=== PATIENT | female | born 1990 | race Caucasian/White ===

== ENCOUNTER 2016-10-08 18:35 | Emergency (ER) | payer OTHER ==
--- NOTE | ~2016-10-08 | CT2 ---
[facility] A Service of [facility] & [facility] RADIOLOGY TEXT RESULTS PATIENT: NINA HERNANDEZ LOCATION: SED : 88 UNIT #: [id number] AGE: [address]: Jarret Rothman SEX: F ORDER DR: [id number] [address] [address] [id number] MR#: [id number] Acc #: [id number] NAME: NINA HERNANDEZ : 1990 SEX: F STUDY DATE/TIME: 10/08/2016 20:01 UNIT: SED ROOM: STUDY DESCRIPTION: CT Abd and Pelv W Cont Attending Physician: Jarret Rothman P.A.-C. Referring Physician: Jarret Rothman P.A.-C. Ordering Physician: Jarret Rothman P.A.-C. Primary Care Physician: Tanya Dent D.O. MEDICAL IMAGING REPORT This report is preliminary unless electronic signature is present. EXAM CT abdomen and pelvis INDICATIONS Right flank pain and nausea for [address]. [address] of the abdomen and pelvis utilizing 100 mL Isovue-370 IV contrast. Coronal and sagittal reconstructions were obtained. This CT exam was performed with one or more of the following radiation dose reduction techniques: Automatic exposure control, adjustment of mA and/or kV according to patient size, and iterative reconstruction. COMPARISON CT abdomen and pelvis dated 02/20/2016. FINDINGS There is an abnormal wedge-shaped area of enhancement in the inferior-pole right kidney. There is some adjacent inflammation in the pararenal fat. This is most consistent with a focal pyelonephritis. There is some mild abnormal enhancement of the right ureter consistent with an ascending urinary tract infection. There is mild pelvicaliectasis. No distal obstructing stone or lesion. The remaining solid abdominal organs are within normal limits. Gallbladder is not distended. Pancreas, spleen, and adrenal glands are within normal limits. The bowel is not dilated. There is a small umbilical hernia. The appendix is normal. The abdominal aorta is normal in caliber. PELVIS: No pelvic mass. There has been prior tubal ligation coils placed in the fallopian tubes. There are a few small follicles in the ovaries. [facility]. [facility] A Service of [facility] & [facility] RADIOLOGY TEXT RESULTS PATIENT: NINA HERNANDEZ LOCATION: SED : 88 UNIT #: [id number] AGE: [address]: Jarret Rothman PAC SEX: F ORDER DR: No enlarged pelvic or inguinal lymph nodes. Bladder enhances normally. No acute osseous abnormalities. IMPRESSION 1. Abnormal focal area of enhancement within the inferior right kidney consistent with a pyelonephritis. Mild inflammatory stranding in the pararenal fat is supportive for an acute pyelonephritis. 2. Abnormal enhancement of the right ureter with mild pelvicaliectasis. The enhancement is typically seen with an ascending urinary tract infection. 3. Small umbilical hernia. Dictated by... Eris King M.D. THIS IS AN ELECTRONICALLY VERIFIED REPORT Eris King M.D. at 10/09/2016 2:22 AM RPC/lisa TD: 10/09/2016 01:28 JOB #: [id number] MEDICAL IMAGING REPORT Page 1 of 1
[~2016-10-08 18:35] MED LIST: AMOXICILLIN; BACTRIM DS TABL1 TA1 PO; CLARITIN10 MG PO; FLEXERIL10 MG PO; FLINTSTONES1 EACH PO; KEFLEX500 M1 PO; LIDOCAINE35.44 GM; LORTAB 5/500 TA1 TA2 PO; NAPROSYN500 MG PO; NO MEDICATIONS; ORTHO-CYCLEN1 TAB; ZOFRAN PO
[2016-10-08] MEDS ORDERED: MACROBID100 MG PO (18:37)
[2016-10-08 19:38] LABS: URINE SOURCE CLEAN CATCH
[2016-10-08 19:40] LABS: URINE APPEARANCE CLEAR; URINE BILIRUBIN NEG (NEG); URINE BLOOD TRACE-INTACT (NEG); URINE COLOR YELLOW; URINE GLUCOSE NEG (NORM); URINE KETONE NEG (NEG); URINE LEUKOCYTE ESTERASE TRACE (NEG); URINE NITRATE NEG (NEG); URINE PROTEIN NEG (NEG)
[2016-10-08 19:41] LABS: BASOPHIL# 0.1 X10e3 (0-0.3); BASOPHIL% 0.4 % (0-2.5); EOSINOPHIL% 0.2 % (0.0-7.0); HEMATOCRIT 41.4 % (35.0-45.0); HEMOGLOBIN 13.9 gm/dL (12.0-16.0); LYMPHOCYTE# 0.8 X10e3 (1.0-3.5); LYMPHOCYTE% 5.9 % (17.0-45.0); MEAN CELL VOLUME 83.4 FL (83-96); MEAN CORPUSCULAR HGB CONC 33.6 g/dL (30-36); MEAN PLATELET VOLUME 9.5 FL (6.5-11.5); MONOCYTE# 0.6 X10e3 (0-1.0); MONOCYTE% 4.5 % (3.0-12.0); NEUTROPHIL# 11.7 X10e3 (1.5-7.1); PLATELET COUNT 237 X10e3 (140-420); RED BLOOD COUNT 4.97 X10e (3.90-5.30); RED CELL DISTRIBUTION WIDTH 13.5 % (11.0-15.5); WHITE BLOOD COUNT 13.2 X10e3 (4.0-10.5)
[2016-10-08 19:42] LABS: DIFF IND NO; MICRO INDICATED? YES
[2016-10-08 19:45] LABS: CULTURE INDICATED? YES; URINE BACTERIA 1+ (NEG); URINE MUCUS PRESENT; URINE SQUAMOUS EPITHELIAL CELL FEW /[HPF]; URINE TRANSITIONAL EPI CELLS FEW /[HPF]
[2016-10-08 19:57] LABS: ALBUMIN SERUM 4.9 g/dL (3.5-5.0); BILIRUBIN, DIRECT 0.3 mg/dL (0.0-0.2); BILIRUBIN,INDIRECT 0.6 mg/dL (0.0-0.9); BILIRUBIN,TOTAL 0.9 mg/dL (0.2-2.0); CALCIUM SERUM 9.7 mg/dL (8.4-10.2); CREATININE SERUM 0.9 mg/dL (0.6-1.4); GLOM FILT RATE Estimated 87.7 mL/min (>60); POTASSIUM 3.3 mmol/L (3.5-5.1); PROTEIN TOTAL SERUM 8.8 g/dL (6.0-8.3)
== END 2016-10-08 21:10 | disposition home or self-care (01) ==
LOC: SED 18:35
PROVIDERS: Physician Assistant
DX: N10 Acute pyelonephritis (principal); Z79.2 Long term (current) use of antibiotics
CPT/HCPCS: 36415; 74177; 80048; 80076; 81003; 83690; 84703; 85025; 87086; 87088; 87186; 96361; 96365; 96375; 99284; J0696; J2270; J2405; Q9967